=== PATIENT | female | born 1985 | race Caucasian/White ===

== ENCOUNTER 2023-07-06 11:04 | Emergency (ER) | payer OTHER, SELFPAY ==
[2023-07-06 11:21] VITALS: BP 146/97; PULSE 83; RESP 16; TEMP 36.3; O2SAT 99
--- NOTE | 2023-07-06 11:29 | ED.GENADULT ---
HPI - General Adult General Chief complaint: Eye Problems Stated complaint: Red eye Source: patient Mode of arrival: ambulatory Limitations: no limitations History of Present Illness HPI narrative: Patient presents for evaluation of bilateral eye irritation. She reports bilateral eye redness with thick yellow drainage present. Symptom onset last night. She woke from sleep this morning with her eyes matte shut. Denies any visual disturbance. Denies pain or pruritis to the eyes. She does not wear contacts. No fever, chills, nausea, vomiting, ear pain sore throat, cough. Her son is being evaluated here for sore throat. She is not taking any medications for her symptoms. Related Data Home Medications Medication Instructions Recorded Confirmed cetirizine 10 mg capsule (Zyrtec) 10 mg PO DAILY 01/24/22 07/06/23 bupropion HCl 300 mg 24 hr tablet, 300 mg PO DAILY 07/06/23 07/06/23 extended release escitalopram oxalate 20 mg tablet 20 mg PO DAILY 07/06/23 07/06/23 hydroxyzine HCl 10 mg tablet 10 mg PO DAILY 07/06/23 07/06/23 venlafaxine 75 mg capsule,extended 75 mg PO DAILY 07/06/23 07/06/23 release 24 hr Allergies Allergy/AdvReac Type Severity Reaction Status Date / Time amoxicillin Allergy Severe Rash Verified 07/06/23 11:26 hydrocodone Allergy Intermediate Hives Verified 07/06/23 11:26 Review of Systems Review of Systems: CONSTITUTIONAL: Denies fever, chills, or sweats. EYES: Reports bilateral eye redness and thick yellow/green drainage. Denies visual disturbance. Denies itching and pain to the eyes ENT: Denies rhinorrhea, congestion, sore throat, or otalgia. CARDIOVASCULAR: Denies chest pain, palpitations, or edema. RESPIRATORY: Denies cough or dyspnea. GASTROINTESTINAL: Denies abdominal pain, nausea, vomiting, or diarrhea. GENITOURINARY: Denies dysuria or hematuria. SKIN: Denies rash or itching. MUSCULOSKELETAL: Denies back pain, joint pain, or myalgia. NEUROLOGIC: Denies headache, numbness, dizziness, or weakness. PSYCHIATRIC: Denies anxiety or depression. FOR[facility]LY [facility] Past Medical History Medical History Anxiety Depression Pituitary microadenoma Surgical History Surgical History Previous section x 2 Family History Family History Mother Hypertension Grandparent Carcinoma of colon Family history of primary malignant neoplasm of liver Family history of type 2 diabetes mellitus Social History Social History Smoking status: Never smoker Alcohol intake: never Substance use: never Living arrangements: with family Spiritual care concerns: No Exam Narrative: GENERAL: Well-appearing, well-nourished, and in no acute distress. HEAD: Normocephalic, atraumatic. EYES: PERRLA and EOMI. Bilateral conjunctival injection and thick yellow/green drainage from the eyes. ENT: Nares clear, no rhinorrhea or epistaxis. Mucous membranes moist. Oropharynx without tonsillar hypertrophy exudate or other lesions. Bilateral TMs pearly bhandari nonbulging NECK: Supple. No adenopathy or masses. No carotid bruits or JVD CHEST: Clear to auscultation. No respiratory distress. No wheezes rales or rhonchi HEART: Regular rate and rhythm. No murmur heard. Normal peripheral pulses. ABDOMEN: Soft, nontender, nondistended, normal active bowel sounds. EXTREMITIES: Normal range of motion. No edema. SKIN: Warm, dry, no rash. NEURO: No focal deficits. Alert and oriented x3. PSYCH: Normal mood and affect. Course Course Emergency Course: This is a 37-year-old female who presented for evaluation of redness and drainage from both eyes. This is a classic presentation of bacterial conjunctivitis. Will dc with erythromycin. Follow up with primary provider. Go to the ER for w
== END 2023-07-06 11:32 | disposition home or self-care (01) ==
PROVIDERS: Emergency Provider Nurse Practitioner; PCP Nurse Practitioner
DX: H10.33 Unspecified acute conjunctivitis, bilateral (principal); F41.9 Anxiety disorder, unspecified; F32.A Depression, unspecified
CPT/HCPCS: 99213; G0463

== ENCOUNTER 2024-04-10 11:11 | Outpatient (CLI) | payer OTHER, SELFPAY ==
--- NOTE | ~2024-04-10 | MR_ITS ---
MRI of the left ankle Clinical history: Pain Technique: Coronal proton-density and proton-density fat-sat images, axial proton-density and proton- density fat-sat images, and sagittal proton-density and proton-density fat-sat images were acquired. Findings: Syndesmotic ligament are intact. Anterior and posterior talofibular ligaments are intact. C alcaneofibular ligament is poorly defined, with probable increased signal. Deltoid ligament is intact . Medial flexor tendons, peroneal tendons, anterior extensor tendons, and Achilles tendon are intact. No osteochondral lesion of the talar dome. Bone marrow signals and joint spaces are preserved. Planta r fascia intact. Normal signal preserved in the sinus Tarsi. No soft tissue mass or fluid collection evident. Impression: Findings compatible with high-grade sprain of the calcaneofibular ligament, which is very poorly deli neated. Complete tear of this ligament is possible. No other significant findings. Reviewed, dictated and finalized at location . Impression: Findings compatible with high-grade sprain of the calcaneofibular ligament, whi ch is very poorly delineated. Complete tear of this ligament is possible. No other significant findings.
== END 2024-04-10 11:12 ==
LOC: MICIMG 11:14
PROVIDERS: PCP Podiatrist Foot & Ankle Surgery; Visit Provider Podiatrist Foot & Ankle Surgery
DX: S93.492A Sprain of other ligament of left ankle, initial encounter (principal); W19.XXXA Unspecified fall, initial encounter
CPT/HCPCS: 73721

== ENCOUNTER → 2024-06-23 11:12 | Outpatient (REF) | payer OTHER, SELFPAY | LOC: ANHLAB 11:12 | PROVIDERS: PCP Podiatrist Foot & Ankle Surgery; Visit Provider Plastic Surgery | DX: L90.5 Scar conditions and fibrosis of skin (principal) | CPT/HCPCS: 88305 ==

== ENCOUNTER 2024-08-26 13:20 | Outpatient (CLI) | payer OTHER, SELFPAY ==
--- NOTE | ~2024-08-26 | MM_ITS ---
EXAMINATION: MM screening [facility] w sarath HISTORY: Screening TECHNIQUE: Craniocaudal and mediolateral oblique 3-D tomosynthesis images were obtained and synthetic 2-D images were generated. CAD analysis was submitted and interpreted. COMPARISON: No prior mammogram is available for comparison at this institution. BREAST PARENCHYMAL COMPOSITION: Not Dense. The breasts are almost entirely fatty. FINDINGS: There is no evidence of suspicious mass, calcification, or architectural distortion to sugg est malignancy in either breast. There has been no suspicious interval change. IMPRESSION: 1. No mammographic evidence of malignancy. 2. Recommend routine screening mammography in one year. BI-RADS Category 1: Negative Reviewed, dictated and finalized at location B.
== END 2024-08-26 13:21 | disposition home or self-care (01) ==
LOC: MICIMG 13:21
PROVIDERS: PCP Nurse Practitioner; Visit Provider Nurse Practitioner
DX: Z12.31 Encounter for screening mammogram for malignant neoplasm of breast (principal)
CPT/HCPCS: 77063; 77067